=== PATIENT | male | born 1950 | race Caucasian/White ===

== ENCOUNTER 2025-03-12 04:01 | Emergency (ER) | payer MEDICARE ==
[~2025-03-12] VITALS: Ht 177.8 cm; Wt 77.3 kg
[2025-03-12 05:21] LABS: BASO # 0.1 10^3/uL (0.0-0.2); BASO % 0.7 % (0.0-1.0); EOS # 0.1 10^3/uL (0.0-0.5); EOS % 0.8 % (0.0-3.0); LYMPH # 1.6 10^3/uL (1.5-5.0); LYMPH % 12.0 % (24.0-44.0); MONO # 0.6 10^3/uL (0.0-0.8); MONO % 4.4 % (2.0-8.0); NEUTROPHILS # 11.2 10^3/uL (1.5-8.5); NEUTROPHILS % 81.7 % (36.0-66.0); PLATELET COUNT, AUTOMATED 333 10^3/uL (150-450)
[2025-03-12 05:46] LABS: ALT/SGPT 34.0 U/L (7.0-40); AST/SGOT 33.0 U/L (<34); CALCIUM LEVEL 10.7 MG/DL (8.3-10.6); CARBON DIOXIDE LEVEL 24.0 MMOL/L (20-31); CHLORIDE LEVEL 106.0 MMOL/L (98-107); CREATININE FOR GFR 0.98 MG/DL (0.70-1.30); GLOMERULAR FILTRATION RATE 81.4 (>42); MAGNESIUM LEVEL 1.8 MG/DL (1.8-2.4); POTASSIUM SERUM 4.3 MMOL/L (3.5-5.1); SODIUM LEVEL 145.0 MMOL/L (136-145)
[2025-03-12] MEDS: NS (Normal Saline) 0.9% 1,000 ML IV ONE (06:18)
[2025-03-12] MEDS: KETOROLAC 30 MG/ML 1 ML VIAL IV ONE (06:19)
[2025-03-12] MEDS ORDERED: ISOVUE-370 76% 100 ML VIAL As Ordered ONE (06:24)
[2025-03-12 07:24] VITALS: TEMP 96.4
[2025-03-12 07:56] LABS: KETONE, URINE AUTO RFX NEGATIVE (NEGATIVE); LEUKOCYTE ESTERASE UR AUTO RFX NEGATIVE (NEGATIVE); MUCUS, URINE RFX SMALL (NEGATIVE); NITRITE, URINE AUTO RFX NEGATIVE (NEGATIVE); RBC, URINE AUTO RFX 31 /HPF (0-3); SQUAM EPITHELIAL CELL UR AURFX 0 /HPF (0-6); WBC, URINE AUTO RFX 0 /HPF (0-3)
[2025-03-12] MEDS ORDERED: PERC5TAB12 PO (08:00)
[2025-03-12] MEDS ORDERED: TAMS-18 PO (08:01)
[2025-03-12 09:30] VITALS: BP 156/67
[2025-03-12 09:39] VITALS: O2SAT 97
== END 2025-03-12 09:59 | disposition home or self-care (01) ==
LOC: M ED 04:01
DX: N13.2 Hydronephrosis with renal and ureteral calculous obstruction (principal); K76.0 Fatty (change of) liver, not elsewhere classified; K76.89 Other specified diseases of liver; N40.0 Benign prostatic hyperplasia without lower urinary tract symptoms; J94.8 Other specified pleural conditions
CPT/HCPCS: 74177; 80047; 80053; 81001; 83605; 83735; 85025; 96361; 96374; 99284; J1885; Q9967